=== PATIENT | female | born 1930 | race Caucasian/White ===

== ENCOUNTER → 2016-12-09 | Outpatient (CLI) | payer MEDICARE, OTHER ==
[2015-10-26 12:20] VITALS: BP 152/72
--- NOTE | 2016-12-09 13:06 | RAD ---
DATE: 12/09/2016 EXAM: DIGITAL SCREEN BILAT W/CAD HISTORY: Routine screening COMPARISON: 12/09/2015 This study was interpreted with the benefit of Computerized Aided Detection (CAD). FINDINGS: The breasts are heterogeneously dense. No new or enlarging breast densities are seen. Numerous benign type calcifications are present. No suspicious microcalcifications have developed. IMPRESSION: Stable mammograms without evidence of malignancy. BI-RADS CATEGORY: 2 BENIGN FINDING(S) RECOMMENDED FOLLOW-UP: 12M 12 MONTH FOLLOW-UP PQRS compliance statement: Patient information was entered into a reminder system with a target due date for the next mammogram. Mammography is a sensitive method for finding small breast cancers, but it does not detect them all and is not a substitute for careful clinical examination. A negative mammogram does not negate a clinically suspicious finding and should not result in delay in biopsying a clinically suspicious abnormality. "Our facility is accredited by the [employer] Mammography Program."
== END | disposition home or self-care (01) ==
LOC: MAMMO 10:57
PROVIDERS: ATTEND Family Medicine
DX: Z12.31 Encounter for screening mammogram for malignant neoplasm of breast (principal)
CPT/HCPCS: G0202; 77067

== ENCOUNTER → 2017-01-05 | Outpatient (CLI) | payer MEDICARE, OTHER ==
[2015-10-26 12:20] VITALS: BP 152/72
[2017-01-05 11:35] LABS: BASO % 1 % (0-3); EOS # 0.2 x10^3/uL (0.0-0.7); EOS % 3 % (0-3); HEMOGLOBIN 12.9 g/dL (12.0-15.5); LYMPH # 1.4 x10^3/uL (1.0-4.8); LYMPH % 23 % (24-48); MEAN CORPUSCULAR HEMOGLOBIN 30 pg (25-35); MEAN CORPUSCULAR HGB CONC 33 g/dL (31-37); MEAN CORPUSCULAR VOLUME 91 fL (79-100); MONO # 0.6 x10^3/uL (0.0-1.1); MONO % 10 % (0-9); NEUT # 3.9 x10^3uL (1.8-7.7); NEUT % 64 % (31-73); PLATELET COUNT 211 x10^3/uL (140-400); RED BLOOD COUNT 4.28 x10^6/uL (3.50-5.40); RED CELL DISTRIBUTION WIDTH 16.4 % (11.5-14.5); WHITE BLOOD COUNT 6.1 x10^3/uL (4.0-11.0)
[2017-01-05 11:38] LABS: ALBUMIN 3.9 g/dL (3.4-5.0); ALBUMIN/GLOBULIN RATIO 1.5 (1.0-1.7); CALCIUM 8.9 mg/dL (8.5-10.1); GFR 52.6; POTASSIUM 4.4 mmol/L (3.5-5.1); TOTAL BILIRUBIN 0.4 mg/dL (0.2-1.0); TOTAL PROTEIN 6.5 g/dL (6.4-8.2)
[2017-01-05 11:39] LABS: C REACTIVE PROTEIN 2.7 mg/L (0-3.3)
[2017-01-05 12:36] LABS: SEDIMENTATION RATE 5 (0-25)
== END | disposition home or self-care (01) ==
LOC: SPEC 11:06
PROVIDERS: ATTEND Internal Medicine Rheumatology
DX: Z00.00 Encounter for general adult medical examination without abnormal findings (principal)
CPT/HCPCS: 36415; 80053; 85027; 85651; 86140

== ENCOUNTER → 2017-02-04 | Outpatient (CLI) | payer MEDICARE, OTHER ==
[2015-10-26 12:20] VITALS: BP 152/72
[2017-02-04 10:41] LABS: BACTERIA,URINE FEW /HPF (0-FEW); BILIRUBIN,URINE NEG (NEG); CLARITY,URINE CLEAR; COLOR,URINE YELLOW; GLUCOSE,URINE NEG (NEG); NITRITE,URINE NEG (NEG); RBC,URINE 0 /HPF (0-2); UROBILINOGEN,URINE 0.2 mg/dL (0.2 mg/dL)
== END | disposition home or self-care (01) ==
LOC: SPEC 10:19
PROVIDERS: ATTEND Family Medicine
DX: N39.0 Urinary tract infection, site not specified (principal)
CPT/HCPCS: 81001; 87086

== ENCOUNTER → 2017-04-07 | Outpatient (CLI) | payer MEDICARE, OTHER ==
[2015-10-26 12:20] VITALS: BP 152/72
[2017-04-07 09:16] LABS: BASO % 1 % (0-3); EOS # 0.2 x10^3/uL (0.0-0.7); EOS % 3 % (0-3); HEMATOCRIT 36.8 % (36.0-47.0); HEMOGLOBIN 12.3 g/dL (12.0-15.5); LYMPH # 1.4 x10^3/uL (1.0-4.8); LYMPH % 26 % (24-48); MEAN CORPUSCULAR HEMOGLOBIN 31 pg (25-35); MEAN CORPUSCULAR HGB CONC 34 g/dL (31-37); MEAN CORPUSCULAR VOLUME 91 fL (79-100); MONO # 0.7 x10^3/uL (0.0-1.1); MONO % 13 % (0-9); NEUT % 57 % (31-73); PLATELET COUNT 166 x10^3/uL (140-400); RED BLOOD COUNT 4.03 x10^6/uL (3.50-5.40); RED CELL DISTRIBUTION WIDTH 14.9 % (11.5-14.5); WHITE BLOOD COUNT 5.3 x10^3/uL (4.0-11.0)
[2017-04-07 09:30] LABS: ALBUMIN 3.8 g/dL (3.4-5.0); DIRECT BILIRUBIN 0.1 mg/dL (0.0-0.2); GFR 52.6; TOTAL BILIRUBIN 0.5 mg/dL (0.2-1.0); TOTAL PROTEIN 6.3 g/dL (6.4-8.2)
== END | disposition home or self-care (01) ==
LOC: SPEC 08:46
PROVIDERS: ATTEND Family Medicine
DX: Z00.00 Encounter for general adult medical examination without abnormal findings (principal)
CPT/HCPCS: 36415; 80076; 82565; 85027

== ENCOUNTER → 2017-05-07 | Outpatient (CLI) | payer MEDICARE, OTHER ==
[2015-10-26 12:20] VITALS: BP 152/72
--- NOTE | 2017-05-07 12:46 | RAD ---
Left wrist, 3 views, 05/07/2017: History: Fall, pain The bony structures are demineralized. There are fractures of the distal radius and ulna with mild dorsal displacement and angulation of the major distal fracture fragments at both fracture sites. The distal radial fracture is comminuted with a longitudinal fracture line extending to involve the articular surface of the distal radius. No dislocation is identified. The carpal bones are intact. There is considerable degenerative change and periarticular calcification at the first CMC joint. Chondrocalcinosis is noted at the wrist. IMPRESSION: 1. Demineralization. 2. Acute mildly displaced fractures of the distal left radius and ulna.
== END | disposition home or self-care (01) ==
LOC: DXRAD 12:13
PROVIDERS: ATTEND Family Medicine
DX: S52.502A Unspecified fracture of the lower end of left radius, initial encounter for closed fracture (principal); S52.602A Unspecified fracture of lower end of left ulna, initial encounter for closed fracture; M19.032 Primary osteoarthritis, left wrist; M11.232 Other chondrocalcinosis, left wrist; W19.XXXA Unspecified fall, initial encounter; Y93.89 Activity, other specified; Y92.89 Other specified places as the place of occurrence of the external cause; Y99.8 Other external cause status
CPT/HCPCS: 73110

== ENCOUNTER → 2017-07-08 | Outpatient (CLI) | payer MEDICARE, OTHER ==
[2015-10-26 12:20] VITALS: BP 152/72
[2017-07-08 15:44] LABS: ALBUMIN 3.6 g/dL (3.4-5.0); CREATININE 0.9 mg/dL (0.6-1.0); DIRECT BILIRUBIN 0.1 mg/dL (0.0-0.2); GFR 59.2; TOTAL BILIRUBIN 0.4 mg/dL (0.2-1.0); TOTAL PROTEIN 6.3 g/dL (6.4-8.2)
[2017-07-08 15:51] LABS: BASO # 0.1 x10^3/uL (0.0-0.2); BASO % 1 % (0-3); EOS # 0.3 x10^3/uL (0.0-0.7); EOS % 5 % (0-3); HEMATOCRIT 35.9 % (36.0-47.0); HEMOGLOBIN 12.1 g/dL (12.0-15.5); LYMPH # 1.5 x10^3/uL (1.0-4.8); LYMPH % 27 % (24-48); MEAN CORPUSCULAR HEMOGLOBIN 30 pg (25-35); MEAN CORPUSCULAR HGB CONC 34 g/dL (31-37); MEAN CORPUSCULAR VOLUME 88 fL (79-100); MONO # 0.6 x10^3/uL (0.0-1.1); MONO % 10 % (0-9); NEUT # 3.2 x10^3uL (1.8-7.7); NEUT % 57 % (31-73); PLATELET COUNT 236 x10^3/uL (140-400); RED BLOOD COUNT 4.06 x10^6/uL (3.50-5.40); RED CELL DISTRIBUTION WIDTH 15.8 % (11.5-14.5); WHITE BLOOD COUNT 5.6 x10^3/uL (4.0-11.0)
== END | disposition home or self-care (01) ==
LOC: SPEC 14:58
PROVIDERS: ATTEND Family Medicine
DX: M05.10 Rheumatoid lung disease with rheumatoid arthritis of unspecified site (principal)
CPT/HCPCS: 36415; 80076; 82565; 85025

== ENCOUNTER → 2017-07-13 | Outpatient (CLI) | payer MEDICARE, OTHER ==
[2015-10-26 12:20] VITALS: BP 152/72
--- NOTE | 2017-07-13 15:04 | RAD ---
Right second toe, 3 views, 07/13/2017: History: Dorsal foot ulcer The bony structures are demineralized. There is mild degenerative change at the first MTP joint and at scattered interphalangeal joints. No acute fracture or destructive bony lesion is seen. IMPRESSION: No acute bony abnormality is detected.
== END | disposition home or self-care (01) ==
LOC: DXRAD 14:10
PROVIDERS: ATTEND Family Medicine
DX: L97.519 Non-pressure chronic ulcer of other part of right foot with unspecified severity (principal); M19.071 Primary osteoarthritis, right ankle and foot; M85.871 Other specified disorders of bone density and structure, right ankle and foot
CPT/HCPCS: 73660

== ENCOUNTER → 2017-08-30 | Outpatient (CLI) | payer MEDICARE, OTHER ==
[2015-10-26 12:20] VITALS: BP 152/72
--- NOTE | 2017-08-30 15:59 | RAD ---
Indication: Chronic ingestive heart failure Technique: PA and lateral views of the chest Comparison: Study from 2013 Findings: Heart is mildly enlarged in size. Lungs are clear. No pneumothorax or pleural effusion. Elevated right hemidiaphragm noted, nonspecific. Dextroscoliosis noted of the lower thoracic spine. Visualized bony thorax is within normal limits. Impression: Satisfactory suboptimal exam due to patient positioning. No acute cardiopulmonary process.
== END | disposition home or self-care (01) ==
LOC: DXRAD 09:22
PROVIDERS: ATTEND Family Medicine
DX: I50.9 Heart failure, unspecified (principal); I51.7 Cardiomegaly; I10 Essential (primary) hypertension
CPT/HCPCS: 71020

== ENCOUNTER → 2017-09-01 | Outpatient (CLI) | payer MEDICARE, OTHER ==
[2015-10-26 12:20] VITALS: BP 152/72
[2017-09-01 08:15] LABS: CALCIUM 9.2 mg/dL (8.5-10.1); CREATININE 0.9 mg/dL (0.6-1.0); GFR 59.2; POTASSIUM 4.8 mmol/L (3.5-5.1)
== END | disposition home or self-care (01) ==
LOC: SPEC 06:43
PROVIDERS: ATTEND Family Medicine
DX: I11.0 Hypertensive heart disease with heart failure (principal); I50.9 Heart failure, unspecified
CPT/HCPCS: 36415; 80048

== ENCOUNTER → 2017-10-08 | Outpatient (CLI) | payer MEDICARE, OTHER ==
[2015-10-26 12:20] VITALS: BP 152/72
[2017-10-08 13:31] LABS: ALBUMIN 3.9 g/dL (3.4-5.0); DIRECT BILIRUBIN 0.1 mg/dL (0.0-0.2); TOTAL BILIRUBIN 0.4 mg/dL (0.2-1.0); TOTAL PROTEIN 7.1 g/dL (6.4-8.2)
== END | disposition home or self-care (01) ==
LOC: SPEC 11:50
PROVIDERS: ATTEND Family Medicine
DX: E55.9 Vitamin D deficiency, unspecified (principal); I11.0 Hypertensive heart disease with heart failure; I50.9 Heart failure, unspecified
CPT/HCPCS: 36415; 80076; 82306; 86140

== ENCOUNTER → 2017-11-05 | Outpatient (CLI) | payer MEDICARE, OTHER ==
[2015-10-26 12:20] VITALS: BP 152/72
[2017-11-05 15:59] LABS: BASO % 1 % (0-3); EOS # 0.1 x10^3/uL (0.0-0.7); EOS % 3 % (0-3); HEMATOCRIT 37.5 % (36.0-47.0); HEMOGLOBIN 12.5 g/dL (12.0-15.5); LYMPH # 1.1 x10^3/uL (1.0-4.8); LYMPH % 20 % (24-48); MEAN CORPUSCULAR HEMOGLOBIN 30 pg (25-35); MEAN CORPUSCULAR HGB CONC 33 g/dL (31-37); MEAN CORPUSCULAR VOLUME 89 fL (79-100); MONO # 0.8 x10^3/uL (0.0-1.1); MONO % 15 % (0-9); NEUT # 3.4 x10^3uL (1.8-7.7); NEUT % 63 % (31-73); PLATELET COUNT 187 x10^3/uL (140-400); RED BLOOD COUNT 4.21 x10^6/uL (3.50-5.40); RED CELL DISTRIBUTION WIDTH 15.9 % (11.5-14.5); WHITE BLOOD COUNT 5.5 x10^3/uL (4.0-11.0)
== END | disposition home or self-care (01) ==
LOC: SPEC 15:41
PROVIDERS: ATTEND Family Medicine
DX: M05.10 Rheumatoid lung disease with rheumatoid arthritis of unspecified site (principal)
CPT/HCPCS: 36415; 85025

== ENCOUNTER 2019-01-15 14:01 | Inpatient (IN) | payer MEDICARE, OTHER ==
[~2019-01-15] VITALS: Ht 152.4 cm; Wt 64.4 kg
[2019-01-15] MEDS ORDERED: IV NORMAL SALINE 1,000ML 1,000 ML IV SCH (14:08)
--- NOTE | 2019-01-15 14:40 | RAD ---
EXAM: Chest, single view. HISTORY: Fever. Weakness. COMPARISON: 08/30/2017 FINDINGS: 2 views the chest are obtained. There is lingular and bilateral lower lobe atelectasis or additional infiltrate. There is elevation of the right hemidiaphragm. The heart is normal in size. There is no pneumothorax. No pleural effusion is seen. There is a reverse left shoulder arthroplasty. IMPRESSION: 1. Bilateral lower lobe lingular atelectasis or interstitial infiltrate. 2. Elevation of the right hemidiaphragm. Electronically signed by: Penelope Zamudio MD (01/15/2019 2:37 PM) [facility]
[2019-01-15 14:46] LABS: BASO % 0 % (0-3); EOS % 0 % (0-3); HEMATOCRIT 37.2 % (36.0-47.0); HEMOGLOBIN 12.9 g/dL (12.0-15.5); LYMPH # 0.2 x10^3/uL (1.0-4.8); LYMPH % 2 % (24-48); MEAN CORPUSCULAR HEMOGLOBIN 32 pg (25-35); MEAN CORPUSCULAR HGB CONC 35 g/dL (31-37); MEAN CORPUSCULAR VOLUME 92 fL (79-100); MONO % 8 % (0-9); NEUT # 11.1 x10^3uL (1.8-7.7); NEUT % 90 % (31-73); PLATELET COUNT 160 x10^3/uL (140-400); RED BLOOD COUNT 4.03 x10^6/uL (3.50-5.40); WHITE BLOOD COUNT 12.4 x10^3/uL (4.0-11.0)
[2019-01-15 14:59] LABS: ALBUMIN 3.5 g/dL (3.4-5.0); ALBUMIN/GLOBULIN RATIO 1.2 (1.0-1.7); CALCIUM 8.6 mg/dL (8.5-10.1); GFR 52.3; POTASSIUM 3.7 mmol/L (3.5-5.1); TOTAL BILIRUBIN 0.6 mg/dL (0.2-1.0); TOTAL PROTEIN 6.4 g/dL (6.4-8.2)
--- NOTE | 2019-01-15 15:21 | PHYS DOC ---
Past History Past Medical History: Other Past Surgical History: Knee Replacement Alcohol Use: None Drug Use: None Adult General Chief Complaint Chief Complaint: WEAKNESS/GENERALIZED HPI HPI Patient is an 88-year-old female who presents from nursing facility with report of high fever up to 103 last night and some mental status change today. Upon arrival, patient is alert and oriented. Patient denies being in any pain but states that she is just having some generalized weakness, stating that she has lost all of her pep. She denies any chest pain or shortness of breath. She also denies any abdominal pain or back pain. Review of Systems Review of Systems Constitutional: Positive fever and chills [] Respiratory: Denies cough or shortness of breath [] Cardiovascular: No additional information not addressed in HPI [] GI: Denies abdominal pain, nausea, vomiting or diarrhea [] : Positive dysuria and hematuria [] Musculoskeletal: Denies back pain or joint pain [] All other systems were reviewed and found to be within normal limits, except as documented in this note. Current Medications Current Medications Current Medications Medications (Trade) Dose Ordered Sig/Aidee Start Time Stop Time Status Last Admin Dose Admin Sodium Chloride 1,000 ml @ 100 mls/hr Q10H 01/15/19 14:08 01/16/19 00:07 01/15/19 14:50 100 MLS/HR Allergies Allergies Allergies Coded Allergies Type Severity Reaction Last Updated Verified Penicillins Allergy Unknown 10/26/15 No Physical Exam Physical Exam Constitutional: Well developed, well nourished, no acute distress, non-toxic appearance. [] HENT: Normocephalic, atraumatic, bilateral external ears normal, oropharynx moist, no oral exudates, nose normal. [] Eyes: PERRLA, EOMI, conjunctiva normal, no discharge. [] Neck: Normal range of motion, no tenderness, supple, no stridor. [] Cardiovascular: Regular rate and rhythm[] Lungs & Thorax: Bilateral breath sounds clear to auscultation [] Abdomen: Bowel sounds normal, soft, no tenderness. [] Skin: Warm, dry, no erythema, no rash. [] Extremities: No tenderness, no cyanosis, no clubbing, ROM intact, no edema. [] Neurologic: Alert and oriented X 3, no focal deficits noted. [] Current Patient Data Vital Signs Vital Signs Date Time Temp Pulse Resp B/P (MAP) Pulse Ox O2 Delivery O2 Flow Rate FiO2 01/15/19 14:09 Nasal Cannula 01/15/19 14:09 101.8 20 95 2.0 Lab Results Laboratory Tests Test 01/15/19 14:10 White Blood Count 12.4 x10^3/uL (4.0-11.0) H Red Blood Count 4.03 x10^6/uL (3.50-5.40) Hemoglobin 12.9 g/dL (12.0-15.5) Hematocrit 37.2 % (36.0-47.0) Mean Corpuscular Volume 92 fL (79-100) Mean Corpuscular Hemoglobin 32 pg (25-35) Mean Corpuscular Hemoglobin Concent 35 g/dL (31-37) Red Cell Distribution Width 16.0 % (11.5-14.5) H Platelet Count 160 x10^3/uL (140-400) Neutrophils (%) (Auto) 90 % (31-73) H Lymphocytes (%) (Auto) 2 % (24-48) L Monocytes (%) (Auto) 8 % (0-9) Eosinophils (%) (Auto) 0 % (0-3) Basophils (%) (Auto) 0 % (0-3) Neutrophils # (Auto) 11.1 x10^3uL (1.8-7.7) H Lymphocytes # (Auto) 0.2 x10^3/uL (1.0-4.8) L Monocytes # (Auto) 1.0 x10^3/uL (0.0-1.1) Eosinophils # (Auto) 0.0 x10^3/uL (0.0-0.7) Basophils # (Auto) 0.0 x10^3/uL (0.0-0.2) Sodium Level 129 mmol/L (136-145) L Potassium Level 3.7 mmol/L (3.5-5.1) Chloride Level 93 mmol/L (98-107) L Carbon Dioxide Level 23 mmol/L (21-32) Anion Gap 13 (6-14) Blood Urea Nitrogen 25 mg/dL (7-20) H Creatinine 1.0 mg/dL (0.6-1.0) Estimated GFR (Cockcroft-Gault) 52.3 BUN/Creatinine Ratio 25 (6-20) H Glucose Level 114 mg/dL (70-99) H Lactic Acid Level 1.1 mmol/L (0.4-2.0) Calcium Level 8.6 mg/dL (8.5-10.1) Total Bilirubin 0.6 mg/dL (0.2-1.0) Aspartate Amino Transferase (AST) 29 U/L (15-37) Alanine Aminotransferase (ALT) 33 U/L (14-59) Alkaline Phosphatase 75 U/L (46-116) Total Protein 6.4 g/dL (6.4-8.2) Albumin 3.5 g/dL (3.4-5.0) Albumin/Globulin Ratio 1.2 (1.0-1.7) EKG EKG [] Radiology/Procedures Radiology/Procedures [] Impressions: PROCEDURE: PORTABLE CHEST 1V EXAM: Chest, single view. HISTORY: Fever. Weakness. COMPARISON: 08/30/2017 FINDINGS: 2 views the chest are obtained. There is lingular and bilateral lower lobe atelectasis or additional infiltrate. There is elevation of the right hemidiaphragm. The heart is normal in size. There is no pneumothorax. No pleural effusion is seen. There is a reverse left shoulder arthroplasty. IMPRESSION: 1. Bilateral lower lobe lingular atelectasis or interstitial infiltrate. 2. Elevation of the right hemidiaphragm. Electronically signed by: Penelope Zamudio MD (01/15/2019 2:37 PM) [facility] Course & Med Decision Making Course & Med Decision Making Pertinent Labs and Imaging studies reviewed. (See chart for details) [] Dragon Disclaimer Dragon Disclaimer This electronic medical record was generated, in whole or in part, using a voice recognition dictation system. Departure Departure: Impression: Primary Impression: UTI (urinary tract infection) Additional Impressions: Fever Generalized weakness Disposition: 01 HOME, SELF-CARE Condition: IMPROVED Referrals: LANI GREGORIO MD (PCP) Problem Qualifiers Primary Impression: UTI (urinary tract infection) Urinary tract infection type: site unspecified Hematuria presence: with hematuria Qualified Codes: N39.0 - Urinary tract infection, site not specified; R31.9 - Hematuria, unspecified Additional Impressions: Fever Fever type: unspecified Qualified Codes: R50.9 - Fever, unspecified BOB VIEIRA Jr. DO January 15, 2019 15:21
[2019-01-15 15:22] LABS: INFLUENZA A PATIENT NEGATIVE (NEGATIVE); INFLUENZA B PATIENT NEGATIVE (NEGATIVE)
[2019-01-15 15:49] LABS: BILIRUBIN,URINE NEG (NEG); CLARITY,URINE CLOUDY; COLOR,URINE YELLOW; GLUCOSE,URINE NEG (NEG); NITRITE,URINE POS (NEG); UROBILINOGEN,URINE 0.2 mg/dL (0.2 mg/dL)
[2019-01-15 15:50] LABS: BACTERIA,URINE MOD /HPF (0-FEW); SQUAMOUS EPITHELIAL CELL,UR MOD /LPF; WBC,URINE TNTC /HPF (0-4)
[2019-01-15 17:05] VITALS: BP 148/74
--- NOTE | 2019-01-15 17:09 | NUR ---
Patient arrived to the unit in stable condition via wheelchair from the ED. Respirations are even and unlabored, patient denies pain presently. Describes feeling fatigued and nauseous. Patient awake, alert and oriented x3. Received education about antibiotics and UTI, oriented to the room and hospital procedures. Will continue to monitor and implement orders.
[2019-01-15] MEDS: VANCOMYCIN PER PHARMACY MC PRN (17:21)
--- NOTE | 2019-01-15 17:34 | NUR ---
Pharmacy Vancomycin Dosing Note S:Consulted to monitor and dose vancomycin started 01/15/19. O:JOSE VENEGAS is a 88 year old F with UTI, . Height: 5 feet, 0 inches Weight: 62.256383 kg [place] Body Weight: 45.50 Adjusted Body Weight: 52.34 Dosing Weight: Actual Other Antibiotics: LEVOFLOXACIN 250MG IV Q24HR LABS: Last BUN: 25 Last Creatinine: 1.0 Creatinine Clearance: 32.13 Last WBC: 12.4 Vancomycin Dosing: Loading Dose: 1500 mg x1 Dosing Weight: Actual Target Trough: 10-20 A: Based on: Actual weight, renal function and indication P: 1. Begin Vancomycin 1000 mg IV q24h 2. Follow up Trough level on 01/17/19 at 1930 3. Pharmacy will continue to monitor, follow and adjust therapy as needed. ANDREW DUNBAR, 01/15/19 2194
[2019-01-15] MEDS ORDERED: AMLO10TA4 PO (18:01)
[2019-01-15] MEDS ORDERED: HYDR200T71 PO (18:01)
[2019-01-15] MEDS ORDERED: DEXT15DR5 EACHEYE (18:01)
[2019-01-15] MEDS ORDERED: FOLI1TAB16 PO (18:01)
[2019-01-15] MEDS ORDERED: FESO8TAB PO (18:01)
[2019-01-15] MEDS ORDERED: DOCU-109 PO (18:01)
[2019-01-15] MEDS ORDERED: SULF1TAB24 PO (18:01)
[2019-01-15] MEDS ORDERED: AMIO100T4 PO (18:01)
[2019-01-15] MEDS ORDERED: ASPI-630 PO (18:01)
[2019-01-15] MEDS ORDERED: PIRO10CA2 PO (18:01)
[2019-01-15] MEDS ORDERED: CARB15DR3 EACHEYE (18:01)
[2019-01-15] MEDS ORDERED: METH2.5T PO (18:01)
[2019-01-15] MEDS ORDERED: LORA10TA65 PO (18:01)
[2019-01-15] MEDS ORDERED: RANI150T21 PO (18:01)
[2019-01-15] MEDS ORDERED: ACET325T21 PO (18:01)
[2019-01-15] MEDS ORDERED: FLUT9.9S NS (18:01)
[2019-01-15] MEDS: IV NORMAL SALINE 1,000ML 1,000 ML IV SCH (18:31)
[2019-01-15] MEDS ORDERED: ACETAMINOPHEN 325 MG TABLET PO PRN (19:15)
[2019-01-15] MEDS ORDERED: POLYVINYL ALCOHOL 1.4% OPHTH SOLUTION 15ML BOTTLE. OU PRN (19:45)
--- NOTE | 2019-01-15 19:57 | HP ---
ADMIT DATE: 01/15/2019 HISTORY OF PRESENT ILLNESS: This is an 88-year-old female came in through the Emergency Room, high fever of 103 degrees last night, some change in mental status. The patient was noted to have slight elevated white count of 12,000, but she had too numerous to count on her white blood cells in her urine. The patient was admitted for SIRS, urinary tract infection. Culture still pending. The patient was placed on vancomycin and Levaquin. The patient admitted for IV antibiotic therapy. PAST MEDICAL HISTORY: From the nursing facility apparently knee replacement. No other history was given. MEDICATIONS: Reconciled in the usual fashion include Claritin 10 mg a day, Bactrim-DS, Plaquenil 200 mg a day, methotrexate 2.5 mg daily, amiodarone 100 mg daily, amlodipine 10 mg daily, aspirin 81, piroxicam 10 mg daily, Tylenol, fluticasone nasal spray, eyedrops, docusate sodium, Zantac, Toviaz 8 mg for urinary incontinence and B complex. ALLERGIES: PENICILLIN. SOCIAL HISTORY: [facility]. No smoking, alcohol or drug use. REVIEW OF SYSTEMS: The patient denies chest pain, abdominal pain. Denies any nausea, vomiting, melena, hematochezia, hematemesis and neurologically, presently stable. PHYSICAL EXAMINATION: GENERAL: This is a pleasant white female, presently in no apparent distress. VITAL SIGNS: Blood pressure 148/74, respiratory rate 20, pulse 86, temperature 101.8. HEENT: The patient's head was atraumatic, normocephalic. Eyes: PERRLA without jaundice. The mouth and throat were normal. NECK: Supple. LUNGS: Clear to auscultation. CARDIOVASCULAR: Regular sinus rhythm, S1, S2, without murmur, rub, thrill, or extra heart sound. ABDOMEN: Soft, nontender, no rebound or guarding. Positive bowel sounds, no hepatosplenomegaly was noted. EXTREMITIES: No clubbing, cyanosis, nor edema. NEUROLOGIC: The patient was alert and oriented x 3. Speech fluent. Cranial nerves 2-12 grossly intact. IMPRESSION: SIRS. The patient's chest x-ray shows possible interstitial infiltrate, urinary tract infection with too numerous to count white blood cells. Culture pending on that. Family history positive for heart disease and lung cancer. PLAN: The patient otherwise continue on IV antibiotic therapy, vancomycin and Levaquin and continue with monitoring the patient accordingly on those multiple medical problems, apparently being on the methotrexate for rheumatoid arthritis. She is slightly immunosuppressed and continued to monitor her accordingly. JOVAN GU MD DR: IGOR/isrrael JOB#: [id number] / [id number]
[2019-01-15] MEDS ORDERED: VANCOMYCIN 1.5 GM in IV NORMAL SALINE 500ML 500 ML IV ONE (20:00)
[2019-01-15] MEDS ORDERED: NON FORMULARY ITEM (Dextran 70/Hypromellose (Artificial Tears Eye Drops) 1 DROP) EACHEYE SCH (21:00)
[2019-01-15] MEDS: DOCUSATE SODIUM 100 MG CAPSULE PO SCH (21:51)
[2019-01-15] MEDS: LACTOBACILLUS RHAMNOSUS GG 1 CAPSULE. PO SCH (21:51)
[2019-01-15] MEDS: OXYBUTYNIN CHLORIDE 5 MG TABLET PO SCH (21:51)
[2019-01-16 00:26] VITALS: BP 150/60
[2019-01-16 05:52] VITALS: BP 155/72
--- NOTE | 2019-01-16 06:46 | EKG ---
[address] [address] Test Date: 2019-01-15 Test Time: 14:24:48 Pat Name: JOSE VENEGAS Department: Room: 125 A Gender: F Economic Research Assistant: ALBINO : 1930 Requested By: BOB VIEIRA Order Number: [id number] Reading MD: Kam Stiles Measurements Intervals [place] Rate: 83 P: 65 AK: 208 QRS: -23 QRSD: 66 T: 7 QT: 364 QTc: 433 Interpretive Statements SINUS RHYTHM LEFTWARD AXIS QRS(T) CONTOUR ABNORMALITY CONSISTENT WITH ANTEROSEPTAL INFARCT AGE UNDETERMINED CONSISTENT WITH INFERIOR INFARCT PROBABLY OLD Electronically Signed On 01-18-2019 16:02:48 CDT by Kam Stiles
[2019-01-16] MEDS: FLUTICASONE 50MCG/NASAL SPRAY 16GM BOTTLE. NS SCH (09:00)
[2019-01-16] MEDS: DICLOFENAC SODIUM 25 MG TABLET.DR PO SCH ×2 (09:00→22:25)
[2019-01-16 10:21] LABS: BASO % 0 % (0-3); EOS % 0 % (0-3); HEMATOCRIT 33.2 % (36.0-47.0); HEMOGLOBIN 11.3 g/dL (12.0-15.5); LYMPH # 0.3 x10^3/uL (1.0-4.8); LYMPH % 3 % (24-48); MEAN CORPUSCULAR HEMOGLOBIN 32 pg (25-35); MEAN CORPUSCULAR HGB CONC 34 g/dL (31-37); MEAN CORPUSCULAR VOLUME 93 fL (79-100); MONO # 1.1 x10^3/uL (0.0-1.1); MONO % 11 % (0-9); NEUT # 8.8 x10^3uL (1.8-7.7); NEUT % 86 % (31-73); PLATELET COUNT 148 x10^3/uL (140-400); RED BLOOD COUNT 3.58 x10^6/uL (3.50-5.40); RED CELL DISTRIBUTION WIDTH 15.9 % (11.5-14.5); WHITE BLOOD COUNT 10.3 x10^3/uL (4.0-11.0)
[2019-01-16 10:28] LABS: CALCIUM 8.1 mg/dL (8.5-10.1); CREATININE 0.9 mg/dL (0.6-1.0); GFR 59.1; POTASSIUM 3.2 mmol/L (3.5-5.1)
[2019-01-16] MEDS: DOCUSATE SODIUM 100 MG CAPSULE PO SCH ×2 (10:52→22:24)
[2019-01-16] MEDS: AMIODARONE HCL 200 MG TABLET PO SCH (10:52)
[2019-01-16] MEDS: amLODIPine BESYLATE 10 MG TABLET PO SCH (10:54)
[2019-01-16] MEDS: ASPIRIN 81 MG TAB.CHEW PO SCH (10:55)
[2019-01-16] MEDS: LACTOBACILLUS RHAMNOSUS GG 1 CAPSULE. PO SCH ×2 (10:55→22:24)
[2019-01-16] MEDS: FAMOTIDINE 20 MG TABLET PO SCH (10:55)
[2019-01-16] MEDS: CETIRIZINE HCL 10 MG TABLET PO SCH (10:55)
[2019-01-16] MEDS: HYDROXYCHLOROQUINE 200 MG TABLET PO SCH (10:55)
[2019-01-16] MEDS: OXYBUTYNIN CHLORIDE 5 MG TABLET PO SCH ×3 (10:55→22:24)
[2019-01-16] MEDS: FOLIC ACID 1 MG TABLET PO SCH (10:55)
[2019-01-16] MEDS: IV NORMAL SALINE 1,000ML 1,000 ML IV SCH (10:56)
[2019-01-16 11:26] VITALS: BP 109/66
[2019-01-16] MEDS: POTASSIUM CL 40MEQ IN 0.9%NACL 1,000 ML IV SCH (15:07)
[2019-01-16 15:23] VITALS: BP 100/60
--- NOTE | 2019-01-16 18:39 | NUR ---
Bladder scan completed post void. 0mls residual. Will continue to monitor.
[2019-01-16 20:15] VITALS: BP 132/69
[2019-01-16] MEDS: VANCOMYCIN 1 GM in IV NORMAL SALINE 250ML 250 ML IV SCH (22:23)
[2019-01-16 23:10] VITALS: BP 144/80
--- NOTE | 2019-01-17 03:23 | PN ---
DATE: 01/16/2019 SUBJECTIVE: The patient is an 88-year-old female patient, a resident at [facility], who was admitted through the Emergency Room with fever up to 103 degrees, altered mental status, was found to have slightly elevated white cell count and had had too numerous to count white blood cells in her urine, was admitted for urinary tract infection. She was treated with IV ceftriaxone and vancomycin and was admitted for inpatient treatment. When I saw her today, she was sitting comfortably in her chair, in no apparent respiratory distress. She is definitely more awake, alert, responding appropriately. Still complaining of generalized weakness and easy fatigability. She normally is able to walk with a walker. Now, she is 2-person assist. She stated that she is generally feeling a little bit better, but still not back to herself. PHYSICAL EXAMINATION: GENERAL: When I examined her, she was pale, but no jaundice, cyanosis, or thyromegaly. No jugular venous distension. No limb edema. VITAL SIGNS: Her heart rate was 69, blood pressure was 109/66, temperature was 98.5, respiratory rate was 20, and oxygen saturation was 99% on 2 liters of oxygen. HEAD, EYES, EARS, NOSE, AND THROAT: Showed normocephalic, atraumatic. NECK: Supple. HEART: Showed normal first and second heart sounds with no gallop, rub, or murmur. CHEST: Clear to auscultation. No crepitation or rhonchi. ABDOMEN: Distended, soft, nontender. No guarding or rigidity. No organomegaly. All hernial orifices intact. Bowel sounds normal. NEUROLOGIC: She was definitely more awake, alert, responding appropriately. Her cranial nerves were intact. She moved extremities without difficulty. Her intake over the last 24 hours was 1475, no output was recorded. LABORATORY DATA: Her lab work this morning showed that her white cell count is down to 10,300, hemoglobin 11, hematocrit 33, MCV 93, and platelet count of 148,000. Her chemistry, however, showed that her serum sodium was 128, potassium 3.2, chloride 95, bicarbonate 21, anion gap of 12, BUN 20, creatinine 0.9, estimated GFR was 59 mL per minute. Her glucose was 110 and calcium was 8.1. Her urinalysis showed the urine was yellow, cloudy with pH of 5.5, specific gravity of 1.025. There is small amount of protein. The urine was negative for glucose, ketones, moderate amount of blood, positive for nitrite, positive also for leukocyte esterase, 6-10 RBCs, too numerous to count WBCs, moderate amount of bacteria. Her influenza A and B were negative. Her urine culture is still pending at the time of this dictation. Her chest x-ray showed that she has bilateral lower lobe lingular atelectasis or interstitial infiltrate, elevation of the right hemidiaphragm. In summary, this is an 88-year-old female patient, resident at [facility], who was admitted with altered mental status, fever, and marked leukocytosis. She was found to have urinary tract infection, admitted to be treated with IV antibiotic. She has also hyponatremia and hypokalemia. PLAN: My plan is to change her IV fluid, to check her morning cortisol as well as TSH and we will decide the further management accordingly. NEDRA GARCAI MD DR: TAMIKA/isrrael JOB#: [id number] / [id number]
[2019-01-17 04:51] VITALS: BP 133/72
[2019-01-17 06:14] LABS: HEMOGLOBIN 10.9 g/dL (12.0-15.5); RED BLOOD COUNT 3.43 x10^6/uL (3.50-5.40); RED CELL DISTRIBUTION WIDTH 16.5 % (11.5-14.5); WHITE BLOOD COUNT 6.4 x10^3/uL (4.0-11.0)
[2019-01-17 06:20] LABS: CALCIUM 8.3 mg/dL (8.5-10.1); CREATININE 0.8 mg/dL (0.6-1.0); GFR 67.7; MAGNESIUM 1.7 mg/dL (1.8-2.4); POTASSIUM 4.1 mmol/L (3.5-5.1)
[2019-01-17] MEDS: POTASSIUM CL 40MEQ IN 0.9%NACL 1,000 ML IV SCH (06:25)
[2019-01-17] MEDS: FAMOTIDINE 20 MG TABLET PO SCH (08:40)
[2019-01-17] MEDS: DOCUSATE SODIUM 100 MG CAPSULE PO SCH ×2 (08:40→21:08)
[2019-01-17] MEDS: ASPIRIN 81 MG TAB.CHEW PO SCH (08:40)
[2019-01-17] MEDS: LACTOBACILLUS RHAMNOSUS GG 1 CAPSULE. PO SCH ×2 (08:40→21:08)
[2019-01-17] MEDS: CETIRIZINE HCL 10 MG TABLET PO SCH (08:40)
[2019-01-17] MEDS: FOLIC ACID 1 MG TABLET PO SCH (08:40)
[2019-01-17] MEDS: amLODIPine BESYLATE 10 MG TABLET PO SCH (08:41)
[2019-01-17] MEDS: OXYBUTYNIN CHLORIDE 5 MG TABLET PO SCH ×3 (08:41→21:08)
[2019-01-17] MEDS: AMIODARONE HCL 200 MG TABLET PO SCH (08:42)
[2019-01-17] MEDS: DICLOFENAC SODIUM 25 MG TABLET.DR PO SCH ×2 (08:43→21:00)
[2019-01-17] MEDS: HYDROXYCHLOROQUINE 200 MG TABLET PO SCH (08:43)
[2019-01-17] MEDS: FLUTICASONE 50MCG/NASAL SPRAY 16GM BOTTLE. NS SCH (09:32)
[2019-01-17 11:38] VITALS: BP 105/66
[2019-01-17 15:22] VITALS: BP 112/66
[2019-01-17 19:48] VITALS: BP 131/69
[2019-01-17 20:34] LABS: VANC TR 9.2 mcg/mL (10.0-20.0)
[2019-01-17] MEDS: VANCOMYCIN 1 GM in IV NORMAL SALINE 250ML 250 ML IV SCH (21:08)
[2019-01-17 23:19] VITALS: BP 121/58
--- NOTE | 2019-01-18 04:49 | PN ---
DATE: 01/17/2019 SUBJECTIVE: The patient is sitting comfortably in her chair, in no apparent distress. She is awake, alert, responding appropriately. On questioning her, she denied any complaints. She is generally feeling much better. She did walk with physical therapy with a walker and standby assist. Her lab work showed that her serum sodium is up to 134, potassium 4.1. So far, her blood cultures are negative. The urine culture is still pending at the time of this dictation, although her white cell count is trending down and today it is only 6400. PHYSICAL EXAMINATION: GENERAL: When I examined her this morning, she looked pale, but no jaundice, cyanosis, or thyromegaly. No jugular venous distension. No lower limb edema. VITAL SIGNS: Her heart rate was 70, blood pressure was 105/66, her temperature was 97.5, respiratory rate was 20 and oxygen saturation was 94%. HEAD, EYES, EARS, NOSE, AND THROAT: Showed normocephalic, atraumatic. NECK: Supple. HEART: Showed normal first and second heart sounds with no gallop, rub or murmur. CHEST: Clear to auscultation. No crepitation or rhonchi. ABDOMEN: Distended, soft, nontender. NEUROLOGIC: She is awake, alert, responding appropriately. All cranial nerves intact. She moves extremities without difficulty. She ambulates with her walker. Her intake over the last 24 hours was 2220, output was 550. LABORATORY DATA: As of this morning, her white cell count was 6400, hemoglobin 11, hematocrit 32, MCV 93, and platelet count of 132,000. Her chemistry showed a serum sodium 134, potassium 4.1, chloride 102, bicarbonate 25, anion gap of 7, BUN 23, creatinine 0.8. Estimated GFR was 68 mL per minute. Her glucose was 90. Calcium was 8.3, magnesium was 1.7. ASSESSMENT: 1. Altered mental status, resolved. 2. Hypokalemia and hyponatremia, both resolved. 3. Urinary tract infection, responding clinically to IV antibiotic; however, the urine culture so far is still pending at the time of this dictation. NEDRA GARCIA MD DR: TAMIKA/isrrael JOB#: [id number] / [id number]
[2019-01-18 05:54] VITALS: BP 150/71
[2019-01-18 06:25] LABS: CALCIUM 8.9 mg/dL (8.5-10.1); CREATININE 0.7 mg/dL (0.6-1.0); POTASSIUM 4.1 mmol/L (3.5-5.1)
[2019-01-18] MEDS: VANCOMYCIN PER PHARMACY MC PRN (07:18)
--- NOTE | 2019-01-18 07:18 | NUR ---
Pharmacy Vancomycin Dosing Note S:Consulted to monitor and dose vancomycin started 01/15/19. O:JOSE VENEGAS is a 88 year old F with UTI, . Height: 5 feet, 0 inches Weight: 64.772665 kg [place] Body Weight: 45.50 Adjusted Body Weight: 53.06 Dosing Weight: Actual Other Antibiotics: LEVOFLOXACIN 250MG IV Q24HR LABS: Last BUN: 17 Last Creatinine: 0.7 Creatinine Clearance: 32 Last WBC: 6.4 Last Procalcitonin: Tmax (past 24 hours): Microbiology: I/O: Drug Levels: Last Trough level: 9.2 on 01/17/19 at 2005 Last dose given 01/17/19 at 210 Vancomycin Dosing: Loading Dose: 1500 mg x1 Dosing Weight: Actual Target Trough: 10-20 A: Based on: Physician request for dosing P: 1. Continue Vancomycin 1000 mg IV q24h - trough should increase 2. Follow up Trough level not ordered yet- will recheck in 3 days if she is still on it. Gram neg rods in urine, will ask Dr today if vancomycin can be discontinued. 3. Pharmacy will continue to monitor, follow and adjust therapy as needed. VIOLA PAYTON, 01/18/19 0714
[2019-01-18] MEDS: FLUTICASONE 50MCG/NASAL SPRAY 16GM BOTTLE. NS SCH (08:46)
[2019-01-18] MEDS: DICLOFENAC SODIUM 25 MG TABLET.DR PO SCH (08:47)
[2019-01-18] MEDS: DOCUSATE SODIUM 100 MG CAPSULE PO SCH (08:48)
[2019-01-18] MEDS: OXYBUTYNIN CHLORIDE 5 MG TABLET PO SCH ×2 (08:48→14:00)
[2019-01-18] MEDS: AMIODARONE HCL 200 MG TABLET PO SCH (08:48)
[2019-01-18 08:49] VITALS: BP 150/71
[2019-01-18] MEDS: FOLIC ACID 1 MG TABLET PO SCH (08:49)
[2019-01-18] MEDS: ASPIRIN 81 MG TAB.CHEW PO SCH (08:49)
[2019-01-18] MEDS: LACTOBACILLUS RHAMNOSUS GG 1 CAPSULE. PO SCH (08:49)
[2019-01-18] MEDS: amLODIPine BESYLATE 10 MG TABLET PO SCH (08:49)
[2019-01-18] MEDS: HYDROXYCHLOROQUINE 200 MG TABLET PO SCH (08:49)
[2019-01-18] MEDS: FAMOTIDINE 20 MG TABLET PO SCH (08:49)
[2019-01-18] MEDS: CETIRIZINE HCL 10 MG TABLET PO SCH (08:49)
[2019-01-18] MEDS ORDERED: LEVO500T59 PO (12:23)
--- NOTE | 2019-01-18 13:51 | DS ---
DATE OF DISCHARGE: 01/18/2019 HOSPITAL COURSE: The patient is sitting comfortably in her recliner, no apparent distress. She is awake, alert, feeling much better. She has worked with physical therapy and as she remained stable, a decision was made to discharge her back to [facility] to continue with oral antibiotic as her urine culture has grown more than 100,000 colony forming units per mL of Gram-negative rods and sensitivity. Identification and sensitivity is still pending at the time of this dictation. PHYSICAL EXAMINATION: GENERAL: When I examined her, she looked pale, but no jaundice, cyanosis, or thyromegaly. No jugular venous distension. No lower limb edema. VITAL SIGNS: Her heart rate was 79, blood pressure was 150/71, temperature was 97.8, respiratory rate was 18 and oxygen saturation was 95% on 2 liters of oxygen. HEENT: Examination of the head, eyes, ears, nose and throat showed normocephalic, atraumatic. NECK: Supple. HEART: Showed normal first and second heart sounds. No gallop, rub or murmur. CHEST: Clear to auscultation. No crepitation or rhonchi. ABDOMEN: Distended, soft, nontender. NEUROLOGIC: She is awake, alert, responding appropriately. All her cranial nerves are intact. EXTREMITIES: She moves extremities without difficulty. She ambulates with a walker. Her intake over the last 24 hours was 2220, output was 550. LABORATORY DATA: Her lab work as of yesterday showed a white cell count of 6400, hemoglobin 11, hematocrit 32, MCV 93 and platelet count of 132,000. Her chemistry as of this morning showed a serum sodium 134, potassium 4.1, chloride 104, bicarbonate 24, anion gap of 9, BUN 17, creatinine was 0.7. Estimated GFR was 79 mL per minute. Her glucose was 100, calcium was 8.9. Her TSH was low at 0.122. Her cortisol was actually within acceptable range of 18. Her urinalysis showed that she has too numerous to count WBCs. Tox screen was negative. Her influenza A and B were negative and nasal screen for MRSA PCR was negative. DISCHARGE MEDICATIONS: She was discharged back to the [facility] to continue on levofloxacin 500 mg once a day for 4 more days, Tylenol 650 mg every 4 hours as needed, amiodarone 100 mg once a day, amlodipine 10 mg daily, aspirin 81 mg once a day, carboxymethylcellulose for Refresh Optive eye drops 1 drop to both eyes 4 times a day. She is on dextran, Artificial Tears eye drops 1 drop to both eyes 4 times a day, Colace 100 mg twice a day, Toviaz 8 mg once a day for overactive bladder, fluticasone proprionate for Flonase 2 sprays to each nostril once a day, folic acid 1 mg once a day, hydroxychloroquine sulfate for Plaquenil 200 mg daily. She was on loratadine for Claritin 10 mg once a day, methotrexate she takes 10 mg once a week for rheumatoid arthritis, and piroxicam 10 mg daily, ranitidine for Zantac 150 mg twice a day. FINAL DISCHARGE DIAGNOSES: Altered mental status, resolved. The patient has hyponatremia and hypokalemia, resolved. Urinary tract infection with growth of more than 100,000 colony forming units of Gram-negative rods. The identification and sensitivity is still pending. The patient has responded clinically to Levaquin and therefore, she was discharged back to continue on Levaquin 500 mg once a day. We will call her if the culture shows something different. Other medical problems are including rheumatoid arthritis and overactive bladder. NEDRA GARCIA MD DR: TAMIKA/nts JOB#: [id number] / [id number]
--- NOTE | 2019-01-18 15:35 | NUR ---
Discharge Note: JOSE VENEGAS Discharge instructions and discharge home medications reviewed with [facility] nurse and a copy given. All questions have been answered and understanding verbalized. The following instructions and handouts were given: medications, follow up instructions, labs, imaging, activity, and plan of care. Discontinued lines and drains: peripheral IV discontinued with no complications. Patient discharged to [facility] with facility transportation.
[2019-01-22] MEDS ORDERED: METHOTREXATE SODIUM PO SCH (09:00)
== END 2019-01-18 15:30 | DRG 871 ==
LOC: ER 14:01 → 1 SOUTH 16:49
PROVIDERS: ADMIT Family Medicine; ATTEND Internal Medicine
DX: A41.9 Sepsis, unspecified organism (principal); J96.00 Acute respiratory failure, unspecified whether with hypoxia or hypercapnia; N39.0 Urinary tract infection, site not specified; E87.1 Hypo-osmolality and hyponatremia; E87.6 Hypokalemia; M06.9 Rheumatoid arthritis, unspecified; N32.81 Overactive bladder; Z96.659 Presence of unspecified artificial knee joint; Z80.1 Family history of malignant neoplasm of trachea, bronchus and lung; Z82.49 Family history of ischemic heart disease and other diseases of the circulatory system
CPT/HCPCS: 36415; 71045; 80048; 80053; 80202; 81001; 82533; 83605; 83735; 84443; 85025; 85027; 87040; 87086; 87186; 87641; 87804; 93005; 96360; J0696; J1956; J3370; J7040; J7050; 97110; 97116; 97530; 97535; 99285-25; J7030

== ENCOUNTER → 2019-03-28 | Outpatient (CLI) | payer MEDICARE, OTHER ==
[~2019-03-28] MED LIST: ACET325T21 PO; AMIO100T4 PO; AMLO10TA4 PO; ASPI-630 PO; CARB15DR3 EACHEYE; DEXT15DR5 EACHEYE; DOCU-109 PO; FESO8TAB PO; FLUT9.9S NS; FOLI1TAB16 PO; HYDR200T71 PO; LEVO500T59 PO; LORA10TA65 PO; METH2.5T PO; PIRO10CA2 PO; RANI-376 PO; SULF1TAB24 PO
--- NOTE | 2019-03-28 11:52 | CARD ---
MR#: [id number] Date of Study: 03/28/2019 Ordering Physician: JULISA ELI, Referring Physician: JULISA ELI, Tech: Maria Del Carmen Snell APPROVED REPORT EXAM: Two-dimensional and M-mode echocardiogram with Doppler and color Doppler. Other Information Quality : AverageHR: 76bpm INDICATION Atrial Fibrillation 2D DIMENSIONS RVDd3.0 (2.9-3.5cm)Left Atrium(2D)3.4 (1.6-4.0cm) IVSd1.3 (0.7-1.1cm)Aortic Root(2D)3.3 (2.0-3.7cm) LVDd4.7 (3.9-5.9cm)LVOT Diameter2.0 (1.8-2.4cm) PWd1.2 (0.7-1.1cm)LVDs3.2 (2.5-4.0cm) FS (%) 30.7 %SV59.2 ml LVEF(%)58.3 (>50%) Aortic Valve AoV Peak Arturo.143.2cm/sAoV VTI34.7cm AO Peak GR.8.2mmHgLVOT Peak Arturo.113.1cm/s LVOT VTI 30.44cmAO Mean GR.5mmHg VY (VMAX)2.35sp9HAM (VTI)2.69cm2 Mitral Valve MV E Ihhfmqam182.5cm/sMV DECEL UBBA280ft MV A Ujedveas414.7cm/sE/A Ratio1.0 Pulmonary Valve PV Peak Nsrlprpq353.1cm/sPV Peak Grad.5mmHg Tricuspid Valve TR P. Atyqnjon439nw/sRAP [id number] TR Peak Gr.40ccQrYPME49wfDv Pulmonary Vein S1 Svnurdxf33.7cm/sD2 Nbzkioua64.6cm/s LEFT VENTRICLE The left ventricle is normal size. There is mild to moderate concentric left ventricular hypertrophy. The left ventricular systolic function is normal. The Ejection Fraction is 60%. There is normal LV s egmental wall motion. Transmitral Doppler flow pattern is Grade II-pseudonormal filling dynamics. RIGHT VENTRICLE The right ventricle is normal size. There is normal right ventricular wall thickness. The right ventr icular systolic function is normal. ATRIA The left atrium size is normal. The right atrium size is normal. The interatrial septum is intact wit h no evidence for an atrial septal defect or patent foramen ovale as noted on 2-D or Doppler imaging. AORTIC VALVE The aortic valve is thickened but opens well. Doppler and Color Flow revealed no significant aortic r egurgitation. There is no significant aortic valvular stenosis. MITRAL VALVE The mitral valve is normal in structure and function. There is no evidence of mitral valve prolapse. There is no mitral valve stenosis. Doppler and Color-flow revealed trace mitral regurgitation. TRICUSPID VALVE The tricuspid valve is normal in structure and function. Doppler and Color Flow revealed trace to mil d tricuspid regurgitation with an estimated PAP of 40 mmHg. There is no tricuspid valve stenosis. PULMONIC VALVE The pulmonary valve is normal in structure and function. Doppler and Color Flow revealed trace pulmon ic valvular regurgitation. GREAT VESSELS The aortic root is normal in size. The IVC is normal in size and collapses >50% with inspiration. PERICARDIAL EFFUSION There is no evidence of significant pericardial effusion. Critical Notification Critical Value: No <Conclusion> The left ventricular systolic function is normal. The Ejection Fraction is 60%. There is normal LV segmental wall motion. Trace mitral regurgitation. Trace to mild tricuspid regurgitation with an estimated PAP of 40 mmHg. There is no evidence of significant pericardial effusion. Signed by : Julisa Eli, Electronically Approved : 03/28/2019 11:51:32
== END | disposition home or self-care (01) ==
LOC: ECHO 07:44
PROVIDERS: ATTEND Internal Medicine Cardiovascular Disease
DX: I07.1 Rheumatic tricuspid insufficiency (principal); I48.0 Paroxysmal atrial fibrillation
CPT/HCPCS: 93306

== ENCOUNTER → 2020-02-28 | Outpatient (CLI) | payer MEDICARE, OTHER ==
--- NOTE | 2020-02-28 10:12 | RAD ---
Left shoulder 2 views INDICATION: Left shoulder surgery. COMPARISON: Chest x-ray 01/15/2019. FINDINGS: 2 views left shoulder show a reverse left total shoulder arthroplasty with evidence of a healing fracture in the proximal humeral metaphysis. No new fracture or aggressive appearing osseous lesions. The implanted hardware appears intact. There is periprosthetic lucency in the proximal marrow that could reflect sequelae of old fracture. Visualized lungs and soft tissues are unremarkable save for surgical clips in the lower left neck. 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 No aggressive osseous lesions. Electronically signed by: Jenn Balderas MD (02/28/2020 10:09 AM) [id number]
== END | disposition home or self-care (01) ==
LOC: RAD 09:03
PROVIDERS: ATTEND Family Medicine
DX: S42.302D Unspecified fracture of shaft of humerus, left arm, subsequent encounter for fracture with routine healing (principal); X58.XXXD Exposure to other specified factors, subsequent encounter; Z96.612 Presence of left artificial shoulder joint
CPT/HCPCS: 73030